=== PATIENT | female | born 1975 | race Asian ===

== ENCOUNTER 2024-03-20 12:32 | Emergency (ER) | payer OTHER ==
[2024-03-20 12:42] VITALS: BP 138/87; PULSE 67; RESP 18; TEMP 98.2; BMI 31.8
[2024-03-20 13:34] LABS: BASO % 0.6 % (0-2.0); EOS % 2.5 % (0-4.5); HEMATOCRIT 30.5 % (32.4-45.2); HEMOGLOBIN 9.5 GM/dL (10.7-15.3); LYMPH % 38.2 % (8-40); MCH 22.7 pg (25.7-33.7); MCHC 31.1 g/dl (32.0-36.0); MEAN CELL VOLUME 73.1 fl (80-96); MEAN PLT VOLUME 9.5 fl (7.5-11.1); MONO % 8.1 % (3.8-10.2); NEUT % 50.6 % (42.8-82.8); PLATELET COUNT 262 10^3/uL (134-434); RBC 4.17 M/mm3 (3.60-5.2); RDW 16.8 % (11.6-15.6); WHITE BLOOD COUNT 6.6 K/mm3 (4.0-10.0)
[2024-03-20 13:58] LABS: POTASSIUM 4.4 mmol/L (3.5-5.1)
[2024-03-20 14:01] LABS: CALCIUM 8.8 mg/dL (8.5-10.1)
[2024-03-20 14:02] LABS: ALBUMIN 3.9 g/dl (3.4-5.0); BLOOD UREA NITROGEN 7.2 mg/dL (7-18)
[2024-03-20 14:04] LABS: PHOSPHOROUS 2.8 mg/dL (2.5-4.9)
[2024-03-20 14:05] LABS: CREATININE 0.7 mg/dL (0.55-1.3); TOT PROT 7.4 g/dl (6.4-8.2)
[2024-03-20 14:06] LABS: BILIRUBIN,TOTAL 0.5 mg/dL (0.2-1)
[2024-03-20 14:56] LABS: HIV INTERPRETATION NEGATIVE (NEGATIVE)
== END 2024-03-20 13:25 | disposition home or self-care (01) ==
LOC: JERFT 12:32
DX: S61.431A Puncture wound without foreign body of right hand, initial encounter (principal); W46.0XXA Contact with hypodermic needle, initial encounter
CPT/HCPCS: 36415; 80053; 82465; 82977; 84100; 85025; 86704; 86803; 87340; 87389; 87517; 99283-25

== ENCOUNTER 2025-01-02 10:18 | Emergency (ER) | payer OTHER ==
[2025-01-02 10:32] VITALS: BP 117/70; PULSE 78; RESP 18; TEMP 98; BMI 31.8
[2025-01-02] MEDS ORDERED: FAMOTIDINE 10 MG TABLET ONE (11:47)
[2025-01-02] MEDS ORDERED: ONDANSETRON *ODT* 4 MG TABLET ONE (11:47)
[2025-01-02] MEDS: ONDANSETRON 4 MG TABLET PO ONE (11:51)
[2025-01-02] MEDS: FAMOTIDINE 10 MG TABLET PO ONE (11:51)
[2025-01-02] MEDS: SODIUM CHLORIDE 1,000 ML IV STA (11:53)
[2025-01-02] MEDS: ONDANSETRON 4 MG/2 ML VIAL IVPUSH ONE (11:53)
[2025-01-02] MEDS: ONDANSETRON *ODT* 4 MG TABLET SL ONE (11:53)
[2025-01-02] MEDS: FAMOTIDINE 20 MG/50 ML IVPB 20 MG/50 ML MG IVPB ONE (11:53)
[2025-01-02 12:03] LABS: ABSOLUTE IMMATURE GRANULOCYTES 0.03 x10^3/uL (0.0-0.031); BASOPHILS # 0.05 x10^3/uL (0.01-0.08); EOSINOPHIL % 3.4 % (0.7-5.8); EOSINOPHILS # 0.29 x10^3/uL (0.04-0.36); HEMATOCRIT 32.6 % (34.1-44.9); HEMOGLOBIN 9.7 g/dL (11.2-15.7); MCHC 29.8 g/dl (32.2-35.5); MEAN CELL VOLUME 77.4 fl (79.4-94.8); MEAN PLT VOLUME 11.7 fl (9.4-12.3); MONOCYTE # 0.66 x10^3/uL (0.24-0.86); MONOCYTE % 7.8 % (4.7-12.5); PLATELET COUNT 270 x10^3/uL (182-369)
[2025-01-02 12:22] LABS: POTASSIUM 4.4 mmol/L (3.5-5.1)
[2025-01-02 12:24] LABS: CALCIUM 8.9 mg/dL (8.5-10.1)
[2025-01-02 12:25] LABS: ALBUMIN 3.9 g/dl (3.4-5.0)
[2025-01-02 12:28] LABS: CREATININE 0.7 mg/dL (0.55-1.3)
[2025-01-02 12:29] LABS: BILIRUBIN,TOTAL 0.2 mg/dL (0.2-1)
[2025-01-02 12:30] LABS: TOT PROT 7.4 g/dl (6.4-8.2)
[2025-01-02 12:50] LABS: URINE APPEARANCE CLEAR; URINE BILIRUBIN NEGATIVE (NEGATIVE); URINE COLOR YELLOW; URINE GLUCOSE (UA) NEGATIVE (NEGATIVE); URINE KETONE TRACE (NEGATIVE); URINE LEUK ESTERASE NEGATIVE (NEGATIVE); URINE NITRITE NEGATIVE (NEGATIVE); URINE PROTEIN NEGATIVE (NEGATIVE); URINE UROBILINOGEN 0.2 mg/dL (0.2-1.0)
[2025-01-02 12:53] LABS: EPI CELLS 7 /uL (0-25.1); HYALINE CASTS 0 /uL (0-3.1); URINE BACTERIA 12 /uL (0-1359); URINE RBC 6 /uL (0-23.9); URINE WBC 2 /uL (0-25.8)
== END 2025-01-02 13:15 | disposition home or self-care (01) ==
LOC: JER 10:18
DX: R11.2 Nausea with vomiting, unspecified (principal); R10.30 Lower abdominal pain, unspecified; R10.13 Epigastric pain
CPT/HCPCS: 0241U-QW; 36415; 80053; 81003; 83036; 83690; 83735; 84484; 84703; 85025; 87086; 93005; 93010; 99284-25; Q0162